=== PATIENT | female | born 1970 | race Caucasian/White ===

== ENCOUNTER 2018-02-08 07:00 | Day surgery (SDC) | payer OTHER ==
[~2018-02-08 07:00] MED LIST: Lactated Ringers 1,000 ML IV SCH; Sodium Chloride 0.9% 10 ML Syringe FLUSH PRN
[2018-02-08] MEDS ORDERED: diphenhydrAMINE 50 MG/ML SDV ONE (08:10)
[2018-02-08] MEDS ORDERED: Propofol 200 MG/20 ML SDV ONE (08:10)
[2018-02-08] MEDS ORDERED: Dexamethasone 10 MG/ML SDV ONE (08:10)
[2018-02-08] MEDS ORDERED: Ondansetron 4 MG/2 ML SDV ONE (08:10)
[2018-02-08] MEDS ORDERED: fentaNYL 100 MCG/2 ML SDV ONE (08:10)
[2018-02-08] MEDS ORDERED: Midazolam 1 MG/ML 2 ML SDV ONE (08:10)
--- NOTE | 2018-02-08 08:17 | PCM.PN ---
- General Info Date of Service: 02/08/18 - Review of Systems Systems Review Comment:: 47 y/o female with recently developed right groin mass here for surgical removal. Cystic mass noted in right groin. Cystic nature by US. 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 The site of the mass is confirmed with the patient and marked. The proposed surgical procedure of excision of the masses discussed with the patient. The possibility of simple biopsy and even hernia repair are reviewed. The likely disruption of her tattoo in the area of the proposed incision is also discussed. She agrees to proceed accepting risks. - Patient Data Vitals - Most Recent: Last Vital Signs Temp 98.1 F 02/08/18 07:56 Pulse 68 02/08/18 07:56 Resp 20 02/08/18 07:56 BP 104/60 02/08/18 07:56 Pulse Ox 100 02/08/18 07:56 Weight - Most Recent: 55.792 kg Med Orders - Current: Current Medications Lactated Ringer's (Ringers, Lactated) 1,000 mls @ 125 mls/hr IV ASDIRECTED [facility] Last Admin: 02/08/18 07:51 Dose: 125 mls/hr Sodium Chloride (Saline Flush) 10 ml FLUSH ASDIRECTED PRN PRN Reason: Keep Vein Open - Problem List Review Problem List Initiated/Reviewed/Updated: Yes - Assessment Assessment:: Right groin mass - Plan Plan:: Excision of right groin mass
[2018-02-08] MEDS ORDERED: Bupivacaine 0.25%/EPINEPHrine 1:200,000 30 ML SDV INFILT ONE (08:26)
[2018-02-08] MEDS ORDERED: ceFAZolin 1 GM Vial ONE (09:14)
--- NOTE | 2018-02-08 10:07 | PCM.OPNOTE ---
- General Post-Op/Procedure Note Date of Surgery/Procedure: 02/08/18 Operative Procedure(s): Repair Right Femoral Hernia with mesh Findings: Large Right Femoral Hernia Pre Op Diagnosis: Right Groin Mass Post-Op Diagnosis: Right Femoral Hernia Anesthesia Technique: General LMA Primary Surgeon: Antony Raymond Pathology: Right Femoral hernia sac Output, Urine Amount: 0 EBL in mLs: 25 Complications: None Condition: Good Free Text/Narrative:: Intake & Output 02/07/18 02/08/18 02/08/18 22:59 06:59 14:59 Intake Total 900 Balance 900
[2018-02-08 11:09] VITALS: BP 110/65
--- NOTE | 2018-02-08 14:26 | OR ---
Date of Procedure: 02/08/2018 PREOPERATIVE DIAGNOSIS: Right groin mass. POSTOPERATIVE DIAGNOSIS: Right femoral hernia. OPERATION PERFORMED: Right femoral hernia repair with mesh. INDICATIONS FOR SURGERY: This 47-year-old female, suddenly developed a cystic mass in her right groin. This was nontender and preop evaluation indicated it was cystic in character. She also has a history of Rebolledo sarcoma several years ago. She comes for groin exploration and removal of the right groin mass. FINDINGS: In the right groin, the patient has a moderate-sized right femoral hernia. This is protruding through the floor of the inguinal canal just superior to the Harjit ligament and had contained fatty tissue with small cystic structure. This had a smooth wall and clear fluid. The tissue inferior to the floor of the inguinal canal was significantly disrupted and quite attenuated from the hernia and from previous surgery. DESCRIPTION OF PROCEDURE: The patient was taken to the operating room. She was given general anesthesia via LMA. The right groin was sterilely prepped and draped. A linear right groin incision was made. This was carried down onto the underlying cystic mass. Dissection around the mass was carried out, isolating it down to the femoral canal, where it appeared to be protruding through the floor of the inguinal canal just above the Harjit ligament from the retroperitoneal space. The external oblique fascia was opened and the femoral hernia was then mobilized and brought into the inguinal canal. Careful dissection was carried out and the majority of the hernia sac was removed and this will be submitted for pathologic evaluation because of the patient's history, there was no indication of communication with the intra-abdominal structures or the peritoneal cavity. Vascular pedicles were ligated with 2-0 Vicryl. The remnants of the round ligament were removed and then the floor of the inguinal canal was reinforced by placing and securing a keyhole-shaped piece of polypropylene mesh in position. It was secured down with interrupted 0 Prolene to the Harjit ligament. On its inferior edge to the Harjit ligament, medial to the femoral vessels and the what remained of the shelving portion of the inguinal ligament anterior to these vessels, all of this tissue was quite attenuated and did not appear very strong. The superior edge of the mesh was trimmed and laid onto the internal oblique fascia where it was secured to this fascia near its fusion with the external oblique fascia, also with interrupted 0 Prolene. The tails of the mesh were trimmed and laid into the space lateral to the internal ring between the internal and external oblique fascia. In securing the mesh, care was used to try to close the defect where the hernia was protruding, but not to compromise the femoral artery or femoral vein, which were clearly identified. With the mesh in position, the wound was irrigated and then closed by re-approximating the external oblique fascia with running and interrupted 2-0 Vicryl. Yin fascia was approximated with interrupted 4-0 Vicryl and the skin was closed with a running 4-0 Vicryl subcuticular stitch, Steri-Strips, and benzoin. Antibiotic ointment and sterile dry dressing were placed. The patient was then awakened, taken from the operating room in satisfactory condition. ESTIMATED BLOOD LOSS: 25 mL. COMPLICATIONS: None. PROGNOSIS: Good. CHIQUI Raymond MD /[id number]
== END 2018-02-08 11:49 | disposition home or self-care (01) ==
LOC: LL.SDS 07:00
PROVIDERS: ATTEND Surgery
DX: K41.90 Unilateral femoral hernia, without obstruction or gangrene, not specified as recurrent (principal); G43.909 Migraine, unspecified, not intractable, without status migrainosus; K21.9 Gastro-esophageal reflux disease without esophagitis
CPT/HCPCS: C1781; J0690; J1100; J1200; J2250; J2405; J2704; J3010; J7120